=== PATIENT | male | born 1955 | race Caucasian/White ===

== ENCOUNTER 2017-12-31 18:40 | Emergency (ER) | payer MEDICAID ==
[2017-12-31] MEDS: HYDROCODONE/APAP (10/325) TAB PO (21:16)
[2017-12-31] MEDS: CLINDAMYCIN 300 MG INJ IM (21:25)
== END 2017-12-31 22:00 | disposition home or self-care (01) ==
LOC: FTE 18:40
DX: K04.7 Periapical abscess without sinus (principal); R40.2412 Glasgow coma scale score 13-15, at arrival to emergency department
CPT/HCPCS: 96372; 99284-25; Z7610